=== PATIENT | female | born 1950 | race Caucasian/White ===

== ENCOUNTER 2018-05-24 21:32 | Emergency (ER) | payer MEDICARE, BC ==
[2018-05-24] MEDS ORDERED: PROCHLORPERAZINE INJ 5 MG/ML 2 ML VIAL IM ONE (21:48)
[2018-05-24] MEDS ORDERED: Morphine VIAL* 10 MG/ML 1 ML VIAL IM ONE (21:49)
[2018-05-24] MEDS ORDERED: Morphine VIAL* 4 MG/ML VIAL (1 ml vial) IV ONE ×2 (22:13→22:28)
[2018-05-24] MEDS ORDERED: oxyCODONE/Acetamin 5/325 MG* TAB PO ONE (22:38)
[2018-05-24] MEDS ORDERED: Ondansetron ODT TAB* 4 MG SL PRN (22:56)
--- NOTE | 2018-05-24 23:09 | ED ---
Shahana Greene Gabriel, scribed for Junior Montoya MD on 05/24/18 at 2147 . Upper Extremity Pain - HPI Summary HPI Summary: This patient is a 67 year old F BIBA to [facility] c/o right shoulder pain s/p fall that occurred [employer]. The pt states she fell backwards off her porch about 3 feet onto her right shoulder. The patient rates the pain 10/10 in severity. Patient reports inability to move elbow due to shoulder pain and mild left sided head trauma. Her last meal was at 1700. Patient denies other pain and LOC. Takes asa daily. - History of Current Complaint Chief Complaint: EDShoulderClavicSabrina Stated Complaint: RIGHT SHOULDER INJURY Time Seen by Provider: 05/24/18 21:39 Hx Obtained From: Patient Mechanism Of Injury: Fall From Height Of: - 3 feet Onset/Duration: Still Present Timing: Constant Severity Initially: Severe Severity Currently: Severe Pain Location: Shoulder Aggravating Factor(s): Movement Associated Signs & Symptoms: Positive: Negative - other pain - Allergies/Home Medications Allergies/Adverse Reactions: Allergies Allergy/AdvReac Type Severity Reaction Status Date / Time Sulfa (Sulfonamide Allergy Intermediate Difficulty Verified 05/24/18 21:46 Antibiotics) Breathing ciprofloxacin [From Cipro] AdvReac Intermediate Blisters Verified 05/24/18 21:46 Penicillins AdvReac Intermediate Swelling Verified 05/24/18 21:46 Xelnejb-Tkn-Rit Reductase AdvReac Mild Muscle Ache Verified 05/24/18 21:46 Inhibitor IV contrast AdvReac Intermediate Hives Uncoded 05/24/18 21:46 PMH/Surg Hx/FS Hx/Imm Hx Endocrine/Hematology History: Denies: Hx Diabetes Cardiovascular History: Denies: Hx Hypertension, Hx Pacemaker/ICD Respiratory History: Reports: Hx Asthma GI History: Denies: Other GI Disorders History: Reports: Other Problems/Disorders - KNOWN RT RENAL STONE Denies: Hx Dialysis, Hx Renal Disease Musculoskeletal History: Reports: Hx Osteoporosis - MINIMAL, Hx Scoliosis Denies: Hx Rheumatoid Arthritis Sensory History: Reports: Hx Contacts or Glasses Denies: Hx Hearing Aid Opthamlomology History: Reports: Hx Contacts or Glasses Neurological History: Reports: Other Neuro Impairments/Disorders - OSTEOPENIA LOW BACK, DEGENERATIVE DISC DISEASE Denies: Hx Headaches Psychiatric History: Denies: Hx Panic Disorder - Surgical History Surgery Procedure, Year, and Place: rt shoulder 2005. right breast biopsy x3. partial hysterectomy 1997. tonsillectomy 7 yrs old. appy 9 yrs old; LT SIDE LYMPH REMOVED FROM ABDOMEN. removed lymph nodes from left side of abdomen 1983 Infectious Disease History: No Infectious Disease History: Denies: Traveled Outside the [place] in Last 30 Days - Family History Known Family History: Positive: Hypertension - Social History Alcohol Use: None Substance Use Type: Reports: None Smoking Status (MU): Never Smoked Tobacco Review of Systems Negative: Fever Positive: Other - r shoulder pain and mild head trauma Neurological: Negative - LOC All Other Systems Reviewed And Are Negative: Yes Physical Exam - Summary Physical Exam Summary: VITAL SIGNS: Reviewed. GENERAL: Patient is a well-developed and nourished female who is lying comfortable in the stretcher. Patient is not in any acute respiratory distress. HEAD AND FACE: No signs of trauma. No ecchymosis, hematomas or skull depressions. No sinus tenderness. EYES: PERRLA, EOMI x 2, No injected conjunctiva, no nystagmus. EARS: Hearing grossly intact. Ear canals and tympanic membranes are within normal limits. MOUTH: Oropharynx within normal limits. NECK: Supple, trachea is midline, no adenopathy, no JVD, no carotid bruit, no c- spine tenderness, neck with full ROM. CHEST: Symmetric, no tenderness at palpation LUNGS: Clear to auscultation bilaterally. No wheezing or crackles. CVS: Regular rate and rhythm, S1 and S2 present, no murmurs or gallops appreciated. ABDOMEN: Soft, non-tender. No signs of distention. No rebound no guarding, and no masses palpated. Bowel sounds are normal. EXTREMITIES: TTP in the right shoulder. Decreased ROM secondary to pain, she is neurovascularly intact distally NEURO: Alert and oriented x 3. No acute neurological deficits. Speech is normal and follows commands. SKIN: Dry and warm Triage Information Reviewed: Yes Vital Signs On Initial Exam: Initial Vitals Temp Pulse Resp BP Pulse Ox 97.9 F 70 20 166/91 98 05/24/18 21:38 05/24/18 21:38 05/24/18 21:38 05/24/18 21:38 05/24/18 21:38 Vital Signs Reviewed: Yes Diagnostics - Vital Signs Vital Signs Temp Pulse Resp BP Pulse Ox 05/24/18 21:38 97.9 F 70 20 166/91 98 - Laboratory Lab Statement: Any lab studies that have been ordered have been reviewed, and results considered in the medical decision making process. - Radiology shoulder Xray Radiology Interpretation Completed By: ED Physician - proximal humerus fracture. Pending official report humerus xray Radiology Interpretation Completed By: ED Physician - proximal humerus fracture. Pending official report Re-Evaluation - Re-Evaluation First Eval Re-Evaluation Time: 22:38 Change: Improved Comment: Pt is feeling better after pain medication. Course/Dx - Course Assessment/Plan: This patient is a 67 year old F BIBA to [facility] c/o right shoulder pain s/p fall that occurred [employer]. The pt states she fell backwards off her porch about 3 feet onto her right shoulder. The patient rates the pain 10/ 10 in severity. Patient reports inability to move elbow due to shoulder pain and mild left sided head trauma. Her last meal was at 1700. Patient denies other pain. Takes asa daily. Humerus XR reveals, proximal humerus fracture. In the ED course the patient was given morphine which resolved her pain. Patient will be discharged with prescription for percocet and follow up from ortho tomorrow. The patient is agreeable with this plan. - Diagnoses Provider Diagnoses: Proximal humeral fracture Discharge - Sign-Out/Discharge Documenting (check all that apply): Discharge/Admit/Transfer - Discharge Plan Condition: Stable Disposition: HOME Prescriptions: oxyCODONE/Acetamin 5/325 MG* [Percocet 5/325 TAB*] 1 tab PO Q6H PRN #14 tab MDD 4 PRN Reason: Pain Patient Education Materials: Arm Fracture in Adults (ED) Referrals: Teo Villafuerte MD [Medical Doctor] - 2 Days Additional Instructions: RETURN TO THE ER FOR ANY NEW OR WORSENING SYMPTOMS The documentation as recorded by the Shahana syed Gabriel accurately reflects the service I personally performed and the decisions made by , Junior Montoya MD.
[2018-05-24 23:12] VITALS: BP 155/91
[2018-05-24] MEDS ORDERED: Ondansetron ODT TAB* 4 MG SL ONE (23:45)
--- NOTE | 2018-05-25 07:39 | RAD ---
INDICATION: Right shoulder injury. TECHNIQUE: 4 views of the right shoulder were obtained. FINDINGS: The bones are osteopenic. There is a slightly common fracture of the surgical neck of the humerus. The fracture fragments are angulated and there is anterior displacement of the distal fragment relative the proximal fragment of approximately one shaft diameter. IMPRESSION: DISPLACED ANGULATED FRACTURE OF THE PROXIMAL HUMERUS.
--- NOTE | 2018-05-25 07:39 | RAD ---
INDICATION: Right humerus injury. TECHNIQUE: 2 views of the right humerus were obtained. FINDINGS: The bones appear osteopenic. There is a slightly comminuted fracture of the surgical neck of the humerus. The major distal fragment is displaced one shaft diameter anterior relative to the proximal fragment. IMPRESSION: DISPLACED FRACTURE OF THE PROXIMAL HUMERUS.
== END 2018-05-24 23:32 | disposition home or self-care (01) ==
LOC: ED 21:32
DX: S42.201A Unspecified fracture of upper end of right humerus, initial encounter for closed fracture (principal); W17.89XA Other fall from one level to another, initial encounter; Y92.9 Unspecified place or not applicable; Z79.82 Long term (current) use of aspirin; Z88.0 Allergy status to penicillin; Z88.3 Allergy status to other anti-infective agents; Z88.5 Allergy status to narcotic agent
CPT/HCPCS: 96372; 96374; 99283; A9270-GY; J0780; J2270

== ENCOUNTER → 2018-06-03 12:14 | Day surgery (SDC) | payer MEDICARE, BC ==
[~2018-06-03 12:14] MED LIST: Buffered Lidocaine 0.9% SYRIN* 5 ML/SYR SYRINGE INTRADERM ONE; Clindamycin 900 MG IVPREMIX(* 900 MG/50 ML SDV IV ONE; Dexamethasone IV* 4 MG/ML 1 ML (4 MG) IV SLOW PU ONE; Dexamethasone IV* 4 MG/ML 1 ML (4 MG) ONE; DiMENhydriNATE IV* 50 MG/ML VIAL IV PUSH PRN; Famotidine IV* 10 MG/ML 2 ML (20 mg) IV ONE; Famotidine IV* 10 MG/ML 2 ML (20 mg) ONE; HYDROmorphone INJ* 0.5 MG/0.5 ML SYRINGE IV PRN; Midazolam* 1 MG/ML 5 ML VIAL (5 MG) ONE; Naloxone* 0.4 MG/ML 1 ML VIAL IV PRN; Ondansetron INJ* 2 MG/ML VIAL IV PRN; Ondansetron INJ* 2 MG/ML VIAL ONE; Propofol* 10 MG/ML 20 ML BTL IV PUSH ONE; ROPIVACAINE 5 MG/ML 30 ML BTL (0.5%) ONE; Ropivacaine (OR use only) 2 MG/ML 10 ML ONE; Scopolamine 1.5 mg* PATCH TRANSDERM PRN; fentaNYL* 50 MCG/ML 2 ML VIAL (100 MCG VIAL) IV PRN; fentaNYL* 50 MCG/ML 2 ML VIAL (100 MCG VIAL) ONE; oxyCODONE/Acetamin 5/325 MG* TAB PO PRN
--- NOTE | 2018-06-03 19:04 | RAD ---
INDICATION: ORIF RIGHT humerus. Technique: 57.8 seconds of?fluoroscopy?was provided?for the physician proceduralist. REPORT: Spot images document a cortical plate and multiple fixation screws bridging the surgical through anatomic neck fracture of the humerus with improved alignment compared with the June 02, 2018 exam. IMPRESSION: Procedural control films. CPT II Codes: G9500
[2018-06-03 19:25] VITALS: BP 133/68
--- NOTE | 2018-06-04 12:04 | OP ---
CC: PCP, Maren Siddiqi MD * DATE OF OPERATION: 06/03/[address] - [facility] DATE OF : 52 SURGEON: Teo Villafuerte MD HEAD START COORDINATOR: JAVI Argueta. An lens assistant was needed for the entirety of the case to help with positioning, retraction and was utilized throughout all portions of the case. ANESTHESIOLOGIST: Dr. Hernandez. ANESTHESIA: General interscalene block. PRE-OP DIAGNOSIS: Right shoulder comminuted two-part fracture in the proximal humerus. POST-OP DIAGNOSIS: Right shoulder comminuted two-part fracture in the proximal humerus. OPERATIVE PROCEDURE: Right shoulder open reduction internal fixation. COMPLICATIONS: None. ESTIMATED BLOOD LOSS: Minimal. IMPLANTS USED: Synthes proximal humerus locking plate with appropriate length screws. INDICATIONS: Laura Denise is a 67-year-old right hand dominant female who fell on a friend's deck around 05/24/18 and had immediate pain and deformity. She was brought to the ER and diagnosed with proximal humerus fracture. At that time, she followed up with me in clinic. I discussed that this is a surgical fracture and I would recommend operative fixation. She declined and wanted to treat this conservatively. She followed up approximately a week later for followup x-rays and there was some more interval shifting. I did discuss again that it probably would be more beneficial for the patient to have this fixed surgically. Risks and benefits were discussed at length and included but not limited to bleeding, infection, damage to nerves, vessels, surrounding structures, wound nonhealing, persistent pain, need for further surgery, scarring, incomplete relief of symptoms, risks of anesthesia, symptomatic hardware, risk of AVM, and limited range of motion. She has elected to proceed. DESCRIPTION OF PROCEDURE: The patient was greeted in the preoperative area by the attending surgeon. Correct extremity was marked and consent was confirmed. The patient underwent interscalene nerve block by the anesthesiologist, after which she was brought back to the operating suite. She was placed in lazy beech chair position. The x-ray was placed to confirm appropriate positioning. The right shoulder was then prepped and draped in the usual sterile fashion beginning with chlorhexidine soap, scrub, and alcohol wipe, and a final prep with ChloraPrep. After appropriate surgical pause indicating side, site, procedure, administration of antibiotics, a 15-blade was used to make a deltopectoral approach. Soft tissues were carefully dissected to expose the fat stripe and cephalic vein. The deltoid and cephalic vein were taken laterally. The pec was taken medially. The fracture was obviously displaced. There were some interval small healing. Rongeur was used to expose the fracture site. The biceps tendon was used as a landmark to help identify positioning of both fragments. The bone quality was poor and more of an eggshell appearance proximally. The fracture fragments were then debrided back, sutures were placed into the anterior and posterior rotator cuff, #5 Ethibond sutures to help with facilitation of placement and with gentle reduction maneuvers, the fracture was then reduced and stabilized with two K wires. This was confirmed on the x-ray. The appropriate plate was then brought and secured to the shaft and then proximally the appropriate length screws were placed. Locking screws were placed. Once this was done, the remaining screws were placed distally. The shoulder was taken through range of motion and found to be stable working as an unit. Appropriate screw lengths were determined to make sure there is no evidence of penetration of the screws. Final images were obtained. The sutures on the rotator cuff were then passed through the plate and tied down for added fixation. Final images were obtained. The wounds were copiously irrigated with sterile saline. The deltopectoral groove was closed with #2 Ethibond suture. The wounds were irrigated again. The skin and subcu were closed with 2-0 Vicryl and mayra. The wounds were injected with 0.25% Marcaine plain. Sterile dressings were applied and a regular sling. Cryo/ Cuff was applied. She was awoken from anesthesia and was transferred to the PACU in stable condition. POSTOPERATIVE PLAN: She will be weightbearing as tolerated. She will be discharged on pain medication. DVT prophylaxis was considered. She does have history MTHFR and will be given aspirin after surgery. I will see the patient back in two weeks. We will start her on gentle range of motion around that time. [id number]/CPS #: [id number] CAROLYN
== END | disposition home or self-care (01) ==
LOC: OR 12:14
PROVIDERS: ATTEND Orthopaedic Surgery
DX: S42.211A Unspecified displaced fracture of surgical neck of right humerus, initial encounter for closed fracture (principal); Z86.718 Personal history of other venous thrombosis and embolism; Z79.01 Long term (current) use of anticoagulants; G89.18 Other acute postprocedural pain; I34.1 Nonrheumatic mitral (valve) prolapse; I47.1 Supraventricular tachycardia; R00.2 Palpitations; J45.909 Unspecified asthma, uncomplicated; K21.9 Gastro-esophageal reflux disease without esophagitis; R42 Dizziness and giddiness; F41.8 Other specified anxiety disorders; W18.39XA Other fall on same level, initial encounter; Y92.89 Other specified places as the place of occurrence of the external cause
CPT/HCPCS: 76000; C1713; C1776; J1100; J2250; J2405; J2704; J2795; J3010